=== PATIENT | male | born 1985 | race Caucasian/White ===

== ENCOUNTER 2017-03-18 13:46 | Inpatient (IN) | payer OTHER ==
[2017-03-18] MEDS ORDERED: Bisacodyl 5 MG TAB PO PRN (15:49)
[2017-03-18] MEDS ORDERED: Sodium Chloride 0.9% 1,000 ML IV SCH (16:00)
[2017-03-18] MEDS: Sodium Chloride 0.9% 1,000 ML IV SCH ×2 (16:39→20:07)
--- NOTE | 2017-03-18 17:51 | HP ---
PRIMARY CARE PHYSICIAN: Dr. Ayaan Delarosa. CHIEF COMPLAINT: Urine discoloration, soreness in body. HISTORY OF PRESENT ILLNESS: Mr. Eagle is a pleasant 31-year-old man who was seen at [facility] on 03/18/2017 after he was sent here by his primary care physician. He reports that he went snowboarding from 03/05-03/11. A couple of days after he returned, he starte d feeling sore in his body. He attributed it to the physical activity. Yesterday, he noticed that his urine had a darker color. He went to see his primary care physician a nd was found to have CK elevated greater than 40,000. He was, therefore, sent to the hospital for ad mission. He reports Influenza infection in early February. REVIEW OF SYSTEMS: The following complete review of systems was negative, unless otherwise mentioned in the HPI or below: Constitutional: Weight loss or gain, ability to conduct usual activities. Skin: Rash, itching. Eyes: Double vision, pain. ENT/Mouth: Nose bleeding, neck stiffness, pain, tenderness. Cardiovascular: Palpitations, dyspnea on exertion, orthopnea. Respiratory: Shortness of breath, wheezing, cough, hemoptysis, fever or night sweats. Gastrointestinal: Poor appetite, abdominal pain, heartburn, nausea, vomiting, constipation, or diarr hea. Genitourinary: Urgency, frequency, dysuria, nocturia. Musculoskeletal: Pain, swelling. Neurologic/Psychiatric: Anxiety, depression. Allergy/Immunologic: Skin rash, bleeding tendency. PAST MEDICAL HISTORY: None. PAST SURGICAL HISTORY: None. FAMILY HISTORY: No family history of coronary artery disease. SOCIAL HISTORY: No history of tobacco use, alcohol use or recreational drug use. CURRENT MEDICATIONS: Include multivitamins, protein shake and creatine monohydrate. ALLERGIES: No known drug allergies. PHYSICAL EXAMINATION: GENERAL: Mr. Eagle is awake and alert, not in acute distress. VITAL SIGNS: Blood pressure is 144/82, pulse is 80, he is breathing at rate of 16 and saturating 98% on room air. He is afebrile. EYES: No scleral icterus. No conjunctival pallor. ENT: Moist mucosal membranes. No oropharyngeal erythema or exudates. NECK: Supple, nontender, normal range of movement code. Trachea is midline. RESPIRATORY: Accessory muscles of breathing are not active. Chest wall movements are symmetric bila terally. LUNGS: Clear to auscultation, without wheezes, rhonchi or crepitations. CARDIOVASCULAR: S1 and S2 are heard, regular. LUNGS: Peripheral pulses palpable. No carotid bruit, no pericardial rub. ABDOMEN: Soft, nontender, bowel sounds heard. No hepatomegaly, no splenomegaly. NEUROLOGIC: Cranial nerves II-XII are intact. Deep tendon reflexes are 2+. MUSCULOSKELETAL: Power is 5/5 in all 4 extremities. Normal range of movement at all major extremity joints. LYMPHATIC: No cervical lymphadenopathy. PSYCHIATRIC: Normal mood, normal affect, patient is oriented to person, place and time. LABORATORY DATA: Mr. Eagle's labs and investigations were reviewed. He had an unremarkable CBC, normal electrolytes, normal creatinine of 1.21, elevated AST of 1262, elevated ALT of 271, normal tot al bilirubin, normal alkaline phosphatase and elevated CK level of greater than 40,000 units per lite r. ASSESSMENT AND PLAN: Mr. Eagle is a pleasant 31-year-old gentleman who was seen at [facility] on 03/18/2017. His problem list includes: 1. Rhabdomyolysis: Mr. Eagle is presenting with rhabdomyolysis. This is most likely from strenu ous physical activity. He will be admitted to the hospital for further management. We will start hi m on intravenous fluids. We will consult Nephrology for their opinion and help with managing his rha bdomyolysis. His creatinine and electrolytes will be rechecked, as well as his CK level. 2. Transaminitis: Mr. Mckeon has isolated transaminitis. The most likely source of transaminases i s from skeletal muscle. I will recheck his transaminitis. He does not have any right upper quadrant tenderness or other features to suggest any hepatic pathology. Many thanks for allowing me to participate in Mr. Eagle's care. Please feel free to contact me wi th any questions or concerns. LEVEL OF RISK: Moderate. LEVEL OF COMPLEXITY: Moderate.
--- NOTE | 2017-03-19 00:24 | CON ---
DATE OF CONSULTATION: 03/18/2017 CONSULTING PHYSICIAN: Dr. Spencer. REASON FOR CONSULT: . REASON FOR ADMISSION: Body weakness and soreness. HISTORY OF PRESENT ILLNESS: This is a 31-year-old male with no significant past medical history who came to the hospital with soreness and muscle weakness and was found to have elevated CK is 40,000 an d Nephrology is currently consulted. Patient complains of dark urine. No fever or chills. No nause a, vomiting, chest pain. Complains of arm swelling. PAST MEDICAL HISTORY: None. PAST SURGICAL HISTORY: None. HOME MEDICATIONS: None. ALLERGIES: No known drug allergies. SOCIAL HISTORY: No smoking, alcohol, or illicit drug abuse. FAMILY HISTORY: No history of kidney disease. REVIEW OF SYSTEMS: The following complete review of systems was negative, unless otherwise mentioned in the HPI or below: Constitutional: Weight loss or gain, ability to conduct usual activities. Sk in: Rash, itching. Eyes: Double vision, pain. ENT/Mouth: Nose bleeding, neck stiffness, pain, te nderness. Cardiovascular: Palpitations, dyspnea on exertion, orthopnea. Respiratory: Shortness of breath, wheezing, cough, hemoptysis, fever, or night sweats. Gastrointestinal: Poor appetite, abdo danielle pain, heartburn, nausea, vomiting, constipation, or diarrhea. Genitourinary: Urgency, frequen cy, dysuria, nocturia. Musculoskeletal: Pain, swelling. Neurologic/Psychiatric: Anxiety, depressi on. Allergy/Immunologic: Skin rash, bleeding tendency. PHYSICAL EXAMINATION: GENERAL: This is a well-built white male in no apparent distress. VITAL SIGNS: Temperature 96, pulse 80s, respiratory rate 16, blood pressure 144/81. HEENT: Atraumatic, normocephalic. Oral mucosa is moist. NECK: Supple, no masses. CARDIOVASCULAR: S1, S2 heard. Rate and rhythm are regular. RESPIRATORY: Clear. ABDOMEN: Soft. MUSCULOSKELETAL: 1+ edema. DERMATOLOGY: No skin rash. NEUROLOGIC: Alert, awake. PSYCHIATRIC: Mood and affect normal. LABORATORY DATA: Hemoglobin is 14.9, potassium is 4.1, BUN 11, creatinine 1.21. AST 1262, CK level is more than 40,000. Urine blood is low. ASSESSMENT AND PLAN: 1. Rhabdomyolysis most likely from recent muscle exertion, current IV fluids and has at 200 mL per h our. 2. Hypertension. 3. Edema, controlled. 4. Hematuria. 5. Acute kidney injury, stable. 6. Elevated liver enzymes. Overall, patient will be monitored closely and .
[2017-03-19] MEDS: Sodium Chloride 0.9% 1,000 ML IV SCH ×5 (01:22→21:17)
[2017-03-19 04:47] LABS: #Eosinphils 0.1 thou/uL (0.0-0.7); #Lymphocytes 2.6 thou/uL (1.20-3.40); #Neutrophils 3.7 thou/uL (1.40-6.50); %Basophils 0.6 % (0.0-1.0); %Eosinophils 1.6 % (0.0-10.0); %Lymphocytes 35.4 % (21.0-51.0); %Neutrophils 49.4 % (42.0-75.0); Hemoglobin 13.5 g/dL (14.0-18.0); Mean Corpuscular HGB CONC 33.5 g/dL (32.0-36.0); Mean Corpuscular Hemoglobin 30.7 pg (27.0-31.0); Mean Corpuscular Volume 91.6 fl (80.0-94.0); Mean Platelet Volume 8.4 fL (7.4-10.4); Platelet Count 160 thou/uL (130-400); RBC Distribution Width 12.4 % (11.5-14.5); White Blood Cell (WBC) Count 7.4 thou/uL (4.8-10.8)
[2017-03-19 05:02] LABS: ALT (SGPT) 223 U/L (8-55); AST (SGOT) 950 U/L (5-34); Alkaline Phosphatase 61 U/L (40-150); Anion Gap 11 mmol/L (10-20); BUN (Urea Nitrogen) 9 mg/dL (8.9-20.6); Bilirubin, Direct 0.4 mg/dL (0.1-0.3); Calc. Creatinine Clearance 97 mL/min (70-130); Carbon Dioxide 25 mmol/L (22-29); Chloride 109 mmol/L (98-107); Estimated GFR-MDRD 73; Globulin 2.7 g/dL (2.4-3.5); Glucose 89 mg/dL (70-105); Potassium 4.3 mmol/L (3.5-5.1); Protein, Total 6.7 g/dL (6.0-8.3); Sodium 141 mmol/L (136-145)
[2017-03-19 05:30] LABS: CK (CPK) Greater than 40000 U/L (30-200)
[2017-03-19 10:46] LABS: Magnesium 2.3 mg/dL (1.6-2.6); Phosphorus 3.7 mg/dL (2.3-4.7)
--- NOTE | 2017-03-19 12:45 | PDOC.PN ---
- Subjective Encounter Start Date: 03/19/17 Encounter Start Time: 08:20 Pt seen for followup re: rhabdomyolysis. No chest pain, shortness of breath or fevers, - Objective MAR Reviewed: Yes Vital Signs & Weight: Vital Signs (12 hours) Temp Pulse Resp BP Pulse Ox 03/19/17 08:00 98.0 F 73 16 124/70 98 Weight Weight 165 lb 14.4 oz I&O: 03/18/17 03/19/17 03/20/17 06:59 06:59 06:59 Intake Total 1200 Output Total 1910 Balance -710 Result Diagrams: 03/19/17 04:11 03/19/17 04:11 Phys Exam - Physical Examination Constitutional: NAD HEENT: moist MMs Neck: supple Respiratory: clear to auscultation bilateral Cardiovascular: RRR Gastrointestinal: soft RUE swelling Neurological: moves all 4 limbs Psychiatric: normal affect Skin: no rash Dx/Plan (1) Rhabdomyolysis Code(s): M62.82 - RHABDOMYOLYSIS Status: Acute (2) Transaminitis Code(s): R74.0 - NONSPEC ELEV OF LEVELS OF TRANSAMNS & LACTIC ACID DEHYDRGNSE Status: Acute (3) Swelling of right upper extremity Code(s): M79.89 - OTHER SPECIFIED SOFT TISSUE DISORDERS Status: Chronic - Plan plan discussed w/ family, out of bed/ambulate * . Transaminitis improving. CK level still above upper limit. Check RUE US to r/o DVT Review of Systems - Review of Systems Respiratory: negative: Cough, Dry, Shortness of Breath, Hemoptysis, SOB with Excertion, Pleuritic Pain, Sputum, Wheezing Cardiovascular: negative: chest pain, palpitations, orthopnea, paroxysmal nocturnal dyspnea, edema, light headedness - Medications/Allergies Allergies/Adverse Reactions: Allergies Allergy/AdvReac Type Severity Reaction Status Date / Time No Known Allergies Allergy Unverified 03/18/17 14:24 Medications: Current Medications Bisacodyl (Dulcolax) 10 mg PO DAILYPRN PRN PRN Reason: Constipation Sodium Chloride (Normal Saline 0.9%) 1,000 mls @ 200 mls/hr IV .Q5H ARANZA Last Admin: 03/19/17 10:45 Dose: 1,000 mls
--- NOTE | 2017-03-19 18:35 | ULT ---
EXAM: RIGHT UPPER EXTREMITY VENOUS ULTRASOUND WITH DOPPLER 03/19/17 HISTORY: Right arm edema. Evaluate for thrombus. COMPARISON: None. TECHNIQUE: Lance scale, color flow, doppler imaging with spectral waveform analysis performed in the right upper extremity venous system. FINDINGS: There is patency and compressibility in the jugular vein. There is patency in the subclavian vein. Ax illary vein compresses and has flow. The basilic vein, cephalic vein compress and has flow. There is flow in the radial vein, ulnar vein. There is compressibility and flow in the brachial vein. Soft tissue edema is noted. IMPRESSION: Soft tissue edema. No evidence of thrombus in the right upper extremity venous system. POS: [facility]
--- NOTE | 2017-03-19 19:53 | PRG ---
DATE OF SERVICE: 03/19/2017 SUBJECTIVE: The patient was seen and examined at the bedside and overnight events noted. The patien t denies any shortness of breath or chest pain or palpitation. No history of nausea or vomiting or d iarrhea or fever or chills or cramps. OBJECTIVE: GENERAL: This is a well-built white male in no apparent distress. VITAL SIGNS: Temperature 98.0, pulse 70, respirations 18, blood pressure 124/70. HEENT: Atraumatic, normocephalic, oral mucosa is moist. Neck: Supple. CARDIOVASCULAR: S1, S2 heard, rate and rhythm regular. RESPIRATORY: Clear to auscultation. GASTROINTESTINAL: Abdomen is soft. MUSCULOSKELETAL: No tenderness, no edema. DERMATOLOGIC: No skin rash. NEUROLOGIC: Alert and awake and oriented x3, no focal neurologic deficits, moving all the extremitie s. PSYCHIATRIC: Mood and affect normal. LABORATORY DATA: Potassium is 4.3, BUN is 9, creatinine is 1.1. CK is 140,000. AST is 950, better than yesterday. ASSESSMENT AND PLAN: 1. Rhabdomyolysis seems like getting better. His urine is getting more clear. Liver enzymes are be tter. 2. Elevated liver enzymes, better. 3. Elevated CK. 4. Hypertension. 5. Edema, controlled. 6. Hematuria. 7. Acute kidney injury, stable. 8. Continue hydration, monitor urine output, and avoid nephrotoxins. We will follow.
[2017-03-20] MEDS: Sodium Chloride 0.9% 1,000 ML IV SCH ×5 (02:22→23:00)
[2017-03-20 05:08] LABS: #Basophils 0.1 thou/uL (0.0-0.2); #Eosinphils 0.2 thou/uL (0.0-0.7); #Lymphocytes 2.5 thou/uL (1.20-3.40); #Monocytes 0.7 thou/uL (0.11-0.59); #Neutrophils 3.3 thou/uL (1.40-6.50); %Basophils 0.8 % (0.0-1.0); %Eosinophils 2.3 % (0.0-10.0); %Lymphocytes 37.6 % (21.0-51.0); %Monocytes 10.3 % (0.0-10.0); %Neutrophils 49.1 % (42.0-75.0); Hemoglobin 12.8 g/dL (14.0-18.0); Mean Corpuscular HGB CONC 33.3 g/dL (32.0-36.0); Mean Corpuscular Hemoglobin 30.5 pg (27.0-31.0); Mean Corpuscular Volume 91.7 fl (80.0-94.0); Mean Platelet Volume 8.5 fL (7.4-10.4); Platelet Count 150 thou/uL (130-400); RBC Distribution Width 12.3 % (11.5-14.5); Red Blood Cell (RBC) Count 4.19 mill/uL (4.70-6.10); White Blood Cell (WBC) Count 6.6 thou/uL (4.8-10.8)
[2017-03-20 05:37] LABS: ALT (SGPT) 213 U/L (8-55); AST (SGOT) 833 U/L (5-34); Albumin 3.7 g/dL (3.5-5.0); Alkaline Phosphatase 54 U/L (40-150); Anion Gap 11 mmol/L (10-20); BUN (Urea Nitrogen) 8 mg/dL (8.9-20.6); Bilirubin, Total 0.4 mg/dL (0.2-1.2); Calc. Creatinine Clearance 106 mL/min (70-130); Calcium 8.6 mg/dL (7.8-10.44); Carbon Dioxide 24 mmol/L (22-29); Chloride 110 mmol/L (98-107); Estimated GFR-MDRD 81; Globulin 2.5 g/dL (2.4-3.5); Glucose 94 mg/dL (70-105); Potassium 4.1 mmol/L (3.5-5.1); Protein, Total 6.2 g/dL (6.0-8.3); Sodium 141 mmol/L (136-145)
[2017-03-20 06:07] LABS: CK (CPK) 39798 U/L (30-200)
[2017-03-20 06:29] VITALS: BMI 22.6
--- NOTE | 2017-03-20 14:11 | PDOC.PN ---
- Subjective Encounter Start Date: 03/20/17 Encounter Start Time: 09:20 Pt seen for followup re: rhabdomyolysis. No complaints today. Denies chest pain, shortness of breath, fevers or chills. No nausea, vomiting or diarrhea. - Objective MAR Reviewed: Yes Vital Signs & Weight: Vital Signs (12 hours) Temp Pulse Resp BP Pulse Ox 03/20/17 11:47 98.3 F 71 16 139/84 99 03/20/17 08:00 98.2 F 67 16 99 03/20/17 07:13 98.2 F 67 16 117/73 99 03/20/17 04:00 98.1 F 73 18 119/70 98 Weight Weight 166 lb 9 oz I&O: 03/19/17 03/20/17 03/21/17 06:59 06:59 06:59 Intake Total 1200 4200 Output Total 1910 5650 Balance -710 -2310 Result Diagrams: 03/20/17 04:31 03/20/17 04:31 Phys Exam - Physical Examination Constitutional: NAD HEENT: moist MMs Neck: supple Respiratory: no wheezing, no rales, no rhonchi, clear to auscultation bilateral Gastrointestinal: soft Neurological: moves all 4 limbs Psychiatric: normal affect Dx/Plan (1) Rhabdomyolysis Code(s): M62.82 - RHABDOMYOLYSIS Status: Acute (2) Transaminitis Code(s): R74.0 - NONSPEC ELEV OF LEVELS OF TRANSAMNS & LACTIC ACID DEHYDRGNSE Status: Acute (3) Swelling of right upper extremity Code(s): M79.89 - OTHER SPECIFIED SOFT TISSUE DISORDERS Status: Chronic - Plan plan discussed w/ family * . Rhabdo improving. Continue IV fluids. No evidence of volume overload at this time. Review of Systems - Medications/Allergies Allergies/Adverse Reactions: Allergies Allergy/AdvReac Type Severity Reaction Status Date / Time No Known Allergies Allergy Unverified 03/18/17 14:24 Medications: Current Medications Bisacodyl (Dulcolax) 10 mg PO DAILYPRN PRN PRN Reason: Constipation Sodium Chloride (Normal Saline 0.9%) 1,000 mls @ 200 mls/hr IV .Q5H RAANZA Last Admin: 03/20/17 13:15 Dose: 1,000 mls
--- NOTE | 2017-03-20 21:35 | PRG ---
DATE OF SERVICE: 03/20/2017 SUBJECTIVE: Patient was seen and examined at bedside and overnight events noted. Patient denies any shortness of breath or chest pain or palpitation. No history of nausea or vomiting or diarrhea or f ever or chills or cramps. OBJECTIVE: GENERAL: This is a thin-built male in no apparent distress. VITAL SIGNS: Temperature 98.3, pulse 71, respiratory rate 16, blood pressure 139/84. HEENT: Atraumatic, normocephalic. Oral mucosa is moist. NECK: Supple. CARDIOVASCULAR: S1, S2 heard. Rate and rhythm regular. RESPIRATORY: Clear to auscultation. GASTROINTESTINAL: Abdomen is soft. MUSCULOSKELETAL: No tenderness. No edema. DERMATOLOGIC: No skin rash. NEUROLOGIC: Alert and awake and oriented x3. No focal neurologic deficits. Moving all the extremiti es. PSYCHIATRIC: Mood and affect normal. LABORATORY DATA: Potassium is 4.1, BUN is 8, creatinine 1.06. CK is , AST is 833. ASSESSMENT AND PLAN: 1. Rhabdomyolysis getting better. Continue IV fluids. Urine is mostly clear. getting better . 2. Hypertension. 3. Edema. 4. Hematuria. 5. Acute kidney injury. 6. Overall CK level is getting better. Continue hydration.
[2017-03-21] MEDS: Sodium Chloride 0.9% 1,000 ML IV SCH ×4 (04:01→20:30)
[2017-03-21 05:27] LABS: #Basophils 0.1 thou/uL (0.0-0.2); #Eosinphils 0.2 thou/uL (0.0-0.7); #Lymphocytes 2.5 thou/uL (1.20-3.40); #Monocytes 0.6 thou/uL (0.11-0.59); #Neutrophils 2.7 thou/uL (1.40-6.50); %Basophils 0.9 % (0.0-1.0); %Eosinophils 2.8 % (0.0-10.0); %Lymphocytes 41.1 % (21.0-51.0); %Monocytes 9.4 % (0.0-10.0); %Neutrophils 45.7 % (42.0-75.0); Mean Corpuscular HGB CONC 32.6 g/dL (32.0-36.0); Mean Corpuscular Volume 91.9 fl (80.0-94.0); Mean Platelet Volume 8.9 fL (7.4-10.4); Platelet Count 154 thou/uL (130-400); RBC Distribution Width 12.2 % (11.5-14.5); Red Blood Cell (RBC) Count 4.33 mill/uL (4.70-6.10)
[2017-03-21 05:32] LABS: ALT (SGPT) 215 U/L (8-55); AST (SGOT) 664 U/L (5-34); Albumin 3.7 g/dL (3.5-5.0); Alkaline Phosphatase 57 U/L (40-150); Anion Gap 10 mmol/L (10-20); BUN (Urea Nitrogen) 12 mg/dL (8.9-20.6); Bilirubin, Total 0.3 mg/dL (0.2-1.2); Calc. Creatinine Clearance 111 mL/min (70-130); Calcium 8.9 mg/dL (7.8-10.44); Carbon Dioxide 24 mmol/L (22-29); Chloride 109 mmol/L (98-107); Estimated GFR-MDRD 85; Globulin 2.7 g/dL (2.4-3.5); Glucose 93 mg/dL (70-105); Potassium 3.8 mmol/L (3.5-5.1); Protein, Total 6.4 g/dL (6.0-8.3); Sodium 139 mmol/L (136-145)
[2017-03-21 05:59] LABS: CK (CPK) 26784 U/L (30-200)
--- NOTE | 2017-03-21 09:54 | PRG ---
DATE OF SERVICE: 03/21/2017 SUBJECTIVE: This is a 31-year-old gentleman being seen for acute kidney injury. The patient denies any nausea, vomiting, or chest pain. PHYSICAL EXAMINATION: GENERAL: Patient is awake, alert. VITAL SIGNS: Afebrile, pulse 65, breathing at 16, blood pressure 133/78. HEAD/NECK: Normocephalic. Atraumatic. EYES: EOMI. No deformity. EARS: Clear. No ulcers. NOSE: Intact. No lesions. MOUTH: Clear. No discharge. THROAT: Clear. No exudate. LUNGS: Clear. No crackles. CARDIAC: S1, S2. No rub. ABDOMEN: Benign. BS+. GENITALIA/RECTUM: Aguilar absent. BACK/EXTREMITIES: Edema 0+ Ulcer- NEUROLOGICAL: Alert and motor intact. SKIN: Rash- Bruise- LYMPHATICS: Edema- Ulcer- LABORATORY DATA: Show creatinine 1.0. ASSESSMENT AND PLAN: 1. Chronic kidney disease stage 2, stable. 2. Hypertension, stable. 3. Rhabdomyolysis, improved. Continue hydration.
--- NOTE | 2017-03-21 16:34 | PDOC.PN ---
- Subjective Encounter Start Date: 03/21/17 Encounter Start Time: 09:20 Pt seen for followup re: rhabdomyolysis. No complaints. - Objective MAR Reviewed: Yes Vital Signs & Weight: Vital Signs (12 hours) Temp Pulse Resp BP Pulse Ox 03/21/17 11:07 98.2 F 65 18 142/79 H 99 03/21/17 08:00 98.2 F 65 18 98 03/21/17 07:46 98.3 F 65 16 133/78 98 Weight Weight 166 lb 9 oz I&O: 03/20/17 03/21/17 03/22/17 06:59 06:59 06:59 Intake Total 4200 3000 2400 Output Total 5650 5795 Balance -1450 3000 -3395 Result Diagrams: 03/21/17 04:39 03/21/17 04:39 Phys Exam - Physical Examination Constitutional: NAD HEENT: moist MMs Neck: supple Respiratory: clear to auscultation bilateral Cardiovascular: RRR Gastrointestinal: soft Neurological: moves all 4 limbs Psychiatric: normal affect Skin: no rash Dx/Plan (1) Rhabdomyolysis Code(s): M62.82 - RHABDOMYOLYSIS Status: Acute (2) Transaminitis Code(s): R74.0 - NONSPEC ELEV OF LEVELS OF TRANSAMNS & LACTIC ACID DEHYDRGNSE Status: Acute (3) Swelling of right upper extremity Code(s): M79.89 - OTHER SPECIFIED SOFT TISSUE DISORDERS Status: Chronic - Plan out of bed/ambulate * . Continue IV fluids. CK improving. Review of Systems - Review of Systems Respiratory: negative: Cough, Dry, Shortness of Breath, Hemoptysis, SOB with Excertion, Pleuritic Pain, Sputum, Wheezing Cardiovascular: negative: chest pain, palpitations, orthopnea, paroxysmal nocturnal dyspnea, edema, light headedness Skin: negative: Rash, Lesions, Russell, Bruising - Medications/Allergies Allergies/Adverse Reactions: Allergies Allergy/AdvReac Type Severity Reaction Status Date / Time No Known Allergies Allergy Unverified 03/18/17 14:24 Medications: Current Medications Bisacodyl (Dulcolax) 10 mg PO DAILYPRN PRN PRN Reason: Constipation Sodium Chloride (Normal Saline 0.9%) 1,000 mls @ 200 mls/hr IV .Q5H ARANZA Last Admin: 03/21/17 15:38 Dose: 1,000 mls
[2017-03-22] MEDS: Sodium Chloride 0.9% 1,000 ML IV SCH ×3 (01:37→06:46)
[2017-03-22 05:53] LABS: #Eosinphils 0.2 thou/uL (0.0-0.7); #Lymphocytes 2.6 thou/uL (1.20-3.40); #Monocytes 0.6 thou/uL (0.11-0.59); #Neutrophils 2.7 thou/uL (1.40-6.50); %Basophils 0.7 % (0.0-1.0); %Eosinophils 3.3 % (0.0-10.0); %Lymphocytes 42.3 % (21.0-51.0); %Neutrophils 44.7 % (42.0-75.0); Hemoglobin 13.1 g/dL (14.0-18.0); Mean Corpuscular HGB CONC 33.2 g/dL (32.0-36.0); Mean Corpuscular Hemoglobin 30.3 pg (27.0-31.0); Mean Corpuscular Volume 91.4 fl (80.0-94.0); Mean Platelet Volume 8.8 fL (7.4-10.4); Platelet Count 154 thou/uL (130-400); RBC Distribution Width 12.2 % (11.5-14.5); Red Blood Cell (RBC) Count 4.32 mill/uL (4.70-6.10); White Blood Cell (WBC) Count 6.1 thou/uL (4.8-10.8)
[2017-03-22 06:03] LABS: ALT (SGPT) 200 U/L (8-55); AST (SGOT) 480 U/L (5-34); Albumin 3.7 g/dL (3.5-5.0); Alkaline Phosphatase 52 U/L (40-150); Anion Gap 10 mmol/L (10-20); BUN (Urea Nitrogen) 8 mg/dL (8.9-20.6); Bilirubin, Total 0.5 mg/dL (0.2-1.2); Calc. Creatinine Clearance 109 mL/min (70-130); Calcium 8.8 mg/dL (7.8-10.44); Carbon Dioxide 25 mmol/L (22-29); Chloride 108 mmol/L (98-107); Estimated GFR-MDRD 83; Globulin 2.5 g/dL (2.4-3.5); Glucose 97 mg/dL (70-105); Protein, Total 6.2 g/dL (6.0-8.3); Sodium 139 mmol/L (136-145)
[2017-03-22 06:29] LABS: CK (CPK) 15545 U/L (30-200)
[2017-03-22 07:50] VITALS: BP 123/69; TEMP 98.2
--- NOTE | 2017-03-22 11:19 | PRG ---
DATE OF SERVICE: 03/22/2017 SUBJECTIVE: This is a 31-year-old gentleman being seen for acute kidney injury. The patient denies any nausea, vomiting, or chest pain. PHYSICAL EXAMINATION: GENERAL: Patient is awake, alert. VITAL SIGNS: Afebrile, pulse 75, breathing 16, blood pressure 123/69. HEAD/NECK: Normocephalic. Atraumatic. EYES: EOMI. No deformity. EARS: Clear. No ulcers. NOSE: Intact. No lesions. MOUTH: Clear. No discharge. THROAT: Clear. No exudate. LUNGS: Clear. No crackles. CARDIAC: S1, S2. No rub. ABDOMEN: Benign. BS+. GENITALIA/RECTUM: Aguilar absent. BACK/EXTREMITIES: Edema 0+ Ulcer- NEUROLOGICAL: Alert and motor intact. SKIN: Rash- Bruise- LYMPHATICS: Edema- Ulcer- LABORATORY DATA: Show hemoglobin 12.3, creatinine 1.0, CK 15,000. ASSESSMENT AND RECOMMENDATIONS: 1. Rhabdomyolysis, improving. 2. Chronic kidney disease, stable. 3. Acute kidney injury, stable. The patient can be discharged home with aggressive hydration at home and can follow up with Dr. Ping florez in 2 days and labs tomorrow.
--- NOTE | 2017-03-22 12:11 | DIS ---
PRIMARY CARE PHYSICIAN: Ayaan Delarosa M.D. DATE OF ADMISSION: 03/18/2017 DATE OF DISCHARGE: 03/22/2017 DISCHARGE DIAGNOSIS: Rhabdomyolysis. CONDITION OF PATIENT AT THE TIME OF DISCHARGE: Stable. I assessed Mr. Eagle on the day of discha rge. He denies any chest pain or shortness of breath. Vital signs are stable. S1 and S2 are heard, regular. Lungs are clear to auscultation bilaterally. DISCHARGE MEDICATIONS: Patient is advised to stop taking creatine supplements. HOSPITAL COURSE: Mr. Eagle is a pleasant 31-year-old gentleman, who was admitted to [facility] on 03/18/2017 for rhabdomyolysis in the context of long-term creatine supplement use as well as more recent physical exertion in the form of snowboarding. He was found to have crea jayshree kinase level greater than 40,000 at the time of admission. He also had transaminitis, presumabl y from rhabdomyolysis. He was seen by Nephrology Service, Dr. Campbell. He was treated with intraven ous fluids, with improvement of his creatine kinase level. He also had a vascular ultrasound of the right upper extremity because of upper extremity swelling. There was soft tissue edema, but no evide nce of thrombus. On the day of discharge, he has a white count of 6100, hemoglobin 13.1, and platelet count 154,000. Sodium 139, potassium 4.0, and creatinine 1.04. His total bilirubin is 0.5, AST 480, ALT 200, and cr eatine kinase level 15,545. Many thanks for allowing me to participate in your patient's care. Please feel free to contact me wi th any questions or concerns. DISCHARGE DESTINATION: Home. TOTAL AMOUNT OF TIME SPENT COORDINATING THIS DISCHARGE: 22 minutes.
== END 2017-03-22 15:02 | disposition home or self-care (01) | DRG 558 ==
LOC: T4-B 13:46
PROVIDERS: ADMIT Internal Medicine; ATTEND Internal Medicine
DX: M62.82 Rhabdomyolysis (principal); N17.9 Acute kidney failure, unspecified; I12.9 Hypertensive chronic kidney disease with stage 1 through stage 4 chronic kidney disease, or unspecified chronic kidney disease; N18.2 Chronic kidney disease, stage 2 (mild); R31.9 Hematuria, unspecified; R74.0 Nonspecific elevation of levels of transaminase and lactic acid dehydrogenase [LDH]; R79.89 Other specified abnormal findings of blood chemistry
CPT/HCPCS: 36415; 80053; 80076; 81001; 82550; 83735; 84100; 85025

== ENCOUNTER 2017-07-29 10:06 | Outpatient (CLI) | payer OTHER ==
--- NOTE | 2017-07-29 11:54 | ULT ---
HEPATIC ULTRASOUND WITH HEPATIC DOPPLER EVALUATION: Date: 07/29/17 HISTORY: Elevated liver function tests. FINDINGS: There are two small echogenic foci seen within the right hepatic lobe, each measuring approximately 1 .1 cm in maximal dimensions. These are difficult to further characterize on this exam, but could repr esent very small hemangiomas. Liver otherwise has a normal sonographic appearance. Visualized portions of the pancreas, visualized portions of the IVC, visualized portions of the right kidney, and spleen demonstrate a normal sonographic appearance. Gallbladder has a normal sonographic appearance and no gallbladder calculus is seen. The common duct measures 0.25 cm in diameter, which is within normal limits. HEPATIC DOPPLER EVALUATION WITH SPECTRAL ANALYSIS AND COLOR FLOW EVALUATION: There is normal directional flow seen within the splenic, hepatic, and portal veins, with arterial Do ppler waveforms of the hepatic and splenic arteries demonstrating arterial waveforms. IMPRESSION: 1. Echogenic right hepatic lobe lesions, which were also seen on the study of 04/14/17. These again statistically likely represent hemangiomas, but are incompletely characterized by sonography. As stat ed on prior exam, these echogenic lesions could be further characterized by MRI if clinically indicat ed. 2. No gallbladder calculi are seen. 3. Common duct is normal in caliber, measuring 0.3 cm in diameter. 4. Normal directional flow is seen within the splenic, hepatic, and protal veins. POS: [facility]
--- NOTE | 2017-07-29 11:55 | ULT ---
RENAL SONOGRAM: DATE: 07/29/17. HISTORY: Elevated creatinine. FINDINGS: The kidneys demonstrate a normal sonographic appearance bilaterally without evidence of a renal mass, renal calculus, or hydronephrosis. The right kidney measures 9.7 cm x 5.3 cm with the left kidney m easuring 10.7 cm x 4.9 cm. The urinary bladder is distended and has a normal sonographic appearance with urinary bladder volume of 353.5 mL. IMPRESSION: Normal-appearing bilateral kidneys. POS: [facility]
== END 2017-07-29 10:07 | disposition home or self-care (01) ==
LOC: SCSULT 10:06
PROVIDERS: ATTEND Nurse Practitioner Family
DX: M62.82 Rhabdomyolysis (principal); K76.9 Liver disease, unspecified; R74.8 Abnormal levels of other serum enzymes; R76.8 Other specified abnormal immunological findings in serum; R17 Unspecified jaundice
CPT/HCPCS: 76705; 76770

== ENCOUNTER 2021-11-06 07:32 | Outpatient (CLI) | payer BC ==
[2021-11-06] MEDS ORDERED: Iopamidol 370 76% 100 ML VIAL ONE (09:06)
== END 2021-11-06 07:33 | disposition home or self-care (01) ==
LOC: CT 07:32
PROVIDERS: ATTEND Nurse Practitioner Family
DX: R59.0 Localized enlarged lymph nodes (principal); I10 Essential (primary) hypertension; E78.5 Hyperlipidemia, unspecified; R53.83 Other fatigue
CPT/HCPCS: 70491; Q9967